=== PATIENT | female | born 1985 | race Caucasian/White ===

== ENCOUNTER 2024-08-22 22:05 | Emergency (ER) | payer SELFPAY ==
[~2024-08-22] VITALS: Ht 157.5 cm; Wt 69.0 kg
[2024-08-22 22:16] VITALS: O2SAT 100
[2024-08-22 22:41] VITALS: BP 171/88; PULSE 90; RESP 18; TEMP 36.9; O2SAT 99
[2024-08-23] MEDS ORDERED: BACITRACIN ZINC OINT UDPKT TOP ONE (02:30)
[2024-08-23] MEDS ORDERED: LIDOCAINE HCL/PF 1% 10 MG/ML 5ML VIAL INFIL ONE (02:30)
[2024-08-23] MEDS: TETANUS, DIPHTHERIA, PERTUSSIS VAC/PF 0.5ML (>10YR OLD) IM ONE (02:44)
[2024-08-23] MEDS ORDERED: IBUP-2029 MT (04:56)
== END 2024-08-23 05:21 | disposition home or self-care (01) ==
LOC: ER 22:05
DX: S61.213A Laceration without foreign body of left middle finger without damage to nail, initial encounter (principal); W45.8XXA Other foreign body or object entering through skin, initial encounter; Y93.89 Activity, other specified; Y92.89 Other specified places as the place of occurrence of the external cause; Y99.8 Other external cause status
CPT/HCPCS: 12002; 99283; 90715; 90471; J2003; Z7610

== ENCOUNTER 2024-09-02 14:28 | Emergency (ER) | payer OTHER ==
[~2024-09-02] VITALS: Ht 160 cm; Wt 77.0 kg
[~2024-09-02 14:28] MED LIST: IBUP-2029 MT
[2024-09-02 14:32] VITALS: O2SAT 99
[2024-09-02 14:44] VITALS: BP 171/100; PULSE 79; RESP 18; TEMP 36.8; O2SAT 100
== END 2024-09-02 15:18 | disposition home or self-care (01) ==
LOC: ER 14:28
DX: S61.219D Laceration without foreign body of unspecified finger without damage to nail, subsequent encounter (principal); Z48.02 Encounter for removal of sutures; X58.XXXD Exposure to other specified factors, subsequent encounter
CPT/HCPCS: 99281